=== PATIENT | female | born 1940 | race Caucasian/White ===

== ENCOUNTER 2020-05-14 17:58 | Emergency (ER) | payer MEDICARE, SELFPAY ==
[2020-05-14 18:00] VITALS: BP 165/52; PULSE 92; RESP 16; TEMP 36.3; O2SAT 96; BMI 18.4
--- NOTE | 2020-05-14 18:24 | US_ITS ---
STUDY: VENOUS DOPPLER ULTRASOUND - BILATERAL LOWER EXTREMITIES REASON FOR EXAM: Female, 79 years old. BILAT LEG PAIN ELEV D DIMER TECHNIQUE: Ultrasound evaluation of the deep vein system to include thayer-scale imaging and compression was performed. Thayer-scale imaging and Doppler sonographic evaluation, including duplex spectral analysis and qualitative color flow sonography, was performed. COMPARISON: None. FINDINGS: RIGHT LEG Common Femoral Vein: Normal compression, spontaneity and augmentation. Normal color Doppler. Common Femoral Vein/Greater Saphenous Junction: Normal compression, spontaneity and augmentation. Normal color Doppler. Deep Femoral Vein: Normal compression, spontaneity and augmentation. Normal color Doppler. Femoral Proximal: Normal compression, spontaneity and augmentation. Normal color Doppler. Femoral Middle: Normal compression, spontaneity and augmentation. Normal color Doppler. Femoral Distal: Normal compression, spontaneity and augmentation. Normal color Doppler. Popliteal Vein: Normal compression, spontaneity and augmentation. Normal color Doppler. Posterior Tibial Vein: Normal compression, spontaneity and augmentation. Normal color Doppler. Peroneal Vein: Normal compression, spontaneity and augmentation. Normal color Doppler. LEFT LEG Common Femoral Vein: Normal compression, spontaneity and augmentation. Normal color Doppler. Common Femoral Vein/Greater Saphenous Junction: Normal compression, spontaneity and augmentation. Normal color Doppler. Deep Femoral Vein: Normal compression, spontaneity and augmentation. Normal color Doppler. Femoral Proximal: Normal compression, spontaneity and augmentation. Normal color Doppler. Femoral Middle: Normal compression, spontaneity and augmentation. Normal color Doppler. Femoral Distal: Normal compression, spontaneity and augmentation. Normal color Doppler. Popliteal Vein: Normal compression, spontaneity and augmentation. Normal color Doppler. Posterior Tibial Vein: Normal compression, spontaneity and augmentation. Normal color Doppler. Peroneal Vein: Normal compression, spontaneity and augmentation. Normal color Doppler. US/Venous Duplex Imag/Vinay Extrem IMPRESSION: Normal venous Doppler ultrasound of the bilateral lower extremities. Electronically Signed: Shaun Hernandez MD at 19:48 EDT , Service support ,
--- NOTE | 2020-05-14 18:26 | ED.VISSUMM ---
- ER Visit Summary Date of Service: 05/14/20 Chief Complaint: Bilateral thigh pain with generalized weakness and weight loss History of Present Illness: The patient is a 79 F history of asthma, renal insufficiency and high cholesterol. Reportedly this is been going on for the last 2 to 3 weeks according to the patient and her . She was seen in urgent care at the [facility] started on amoxicillin for possible infected tooth. She had outpatient labs done that reportedly revealed elevated d-dimer so she was sent to the ER to rule out DVT. She denies chest pain or shortness of breath. She denies hemoptysis. She denies fever or chills. She denies dysuria. She has no known history of cancer. Patient's had no recent hospitalization, surgery, travel or immobilization. Physical Examination: Well-appearing elderly female no acute distress vital signs stable afebrile. Pulse ox 96% on room air no signs hypoxia. H EENT exam unremarkable. Neck nontender no lymphadenopathy. Lungs clear to auscultation bilaterally. Heart regular rhythm no murmur. Abdomen soft nontender normal bowel sounds no peritoneal signs. Remedies moves all 4. Neurovascular intact. 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 Her lower extremities and feet have no swelling. No calf tenderness. No edema. Dorsi plantarflexion intact. DP pulses intact. She has normal range of motion of both hips, knees and ankles. Thighs are nonswollen. They are not specifically tender. No signs of trauma. Neurologically she is awake alert with no focal motor deficits. Test Results: White count 13.9 a recent CBC done at the [facility] was 18.3. Hemoglobin 11.5. Chemistries unremarkable. Normal gap. BUN of 10 creatinine of 1.1. Glucose of 107. Noninvasive studies of both lower extremities showed no clots. Read by the radiologist. I went over all test results with the patient and her . Emergency Department Course and Treatment: Patient was sent in for rule out DVT. Clinically she does not have a DVT by exam. There is no edema or cords. No swelling. Lower extremity ultrasound to be obtained. Due to her other history of weight loss generalized weakness I am obtaining screening labs. She reportedly had a negative chest x-ray recently. Repeat exam patient is doing well at 2300. Leg exam is unremarkable. There is no redness, swelling or bruising to her thighs. She has normal range of motion of both lower extremities. Normal strength and sensation. Treatment Plan: Follow-up with primary care physician. Return if feeling worse. Disposition: Discharge Impression: Bilateral lower extremity pain secondary to muscular etiology Generalized weakness This note was generated with [employer] dictation software. It may contain incorrect words, spelling, and punctuation that were not noted in review of the chart prior to signing ED Disposition - Plan for ED Patient: Referrals: Kymberly Bennett MD [Primary Care Provider] -
[2020-05-14 19:20] LABS: Absolute Lymphocyte Count 1.22 X10^3/uL (0.83-4.51); Absolute Neutrophil Count 11.2 X10^3/uL (2.0-7.7); Basophil# 0.08 X10^3/uL; Basophil% 0.6 % (0-1); Eosinophil# 0.09 X10^3/uL; Eosinophils% 0.6 % (0-5); Hematocrit 36.5 % (37-47); Hemoglobin 11.5 g/dL (12.0-15.0); Lymphocyte # 1.22 X10^3/ul (4.0); Lymphocyte % 8.8 % (19-41); Mean Corp Hgb Conc 31.5 g/dL (32-36); Mean Corpuscular Hgb 27.5 pg (27.0-32.0); Mean Corpuscular Volume 87.3 fL (81-99); Mean Platelet Vol. 10.7 fl (6.2-12.0); Monocyte# 1.02 X10^3/uL; Monocyte% 7.4 % (0-10); NRBC Flagged by Analyzer 0 % (0-5); Neutrophil # 11.15 X10^3/uL (2.7-7.7); Neutrophil % 80.4 % (47-70); Platelet Count 618 K/mm3 (150-450); RBC Distribution Width CV 13.2 % (11.6-14.6); Red Blood Count 4.18 M/mm3 (4.2-5.4); White Blood Count 13.9 K/mm3 (4.4-11.0)
[2020-05-14 19:21] LABS: Anion Gap 5 (5-15); BUN 10 mg/dL (7-18); BUN/Creat Ratio 8.9 RATIO (10-20); Calcium,Total 8.5 mg/dL (8.5-10.1); Chloride 98 mmol/L (98-107); Creatinine, Serum 1.12 mg/dL (0.55-1.02); EST Glomerular Filtration Rate 50 mL/min (>60); Est Glom Filt Rate - Afr Amer 60 mL/min (>60); Estimated Creatinine Clearance 33.29 ml/min; Glucose 107 mg/dL (74-106); Sodium Level 134 mmol/L (136-145)
[2020-05-14 21:06] VITALS: RESP 16
--- NOTE | 2020-05-14 23:03 | ED.DEP ---
ED Disposition - Plan for ED Patient: Disposition: Home or Assisted Living Referrals: Kymberly Bennett MD [Primary Care Provider] - 3-5 Days if not improving Rocael Cabezas MD [STAFF PHYSICIAN] - 3-5 Days if not improving Additional Instructions: Follow-up with your primary care physician Dr. Bennett or look for a new primary care physician with [facility] which includes Dr. Rocael Cabezas, Dr. Reece Solorio or Dr. Dio Chen. Plenty of fluids and rest. The leg pain should progressively improve if not you will need further testing. If you continue to lose weight you will also need further testing. The ultrasound of your legs tonight showed no signs of any blood clots or other abnormality.
[2020-05-14 23:26] VITALS: RESP 16
== END 2020-05-14 23:27 | disposition home or self-care (01) ==
PROVIDERS: Emergency Provider Emergency Medicine; PCP Internal Medicine
DX: M79.651 Pain in right thigh (principal); M79.652 Pain in left thigh; R53.1 Weakness; E78.00 Pure hypercholesterolemia, unspecified
CPT/HCPCS: 80048; 85025; 93970; 99283

== ENCOUNTER 2023-08-08 11:55 | Inpatient (IN) | payer MEDICARE, SELFPAY ==
[2023-08-08] VITALS (9 sets, daily range): BP systolic 120–154; BP diastolic 53–78; PULSE 73–95; RESP 16–29; TEMP 36.7–37.6; O2SAT 2–98; BMI 18.2; BMI 18.7
--- NOTE | 2023-08-08 12:26 | RAD_ITS ---
INDICATION: cough EXAMINATION/TECHNIQUE: X-RAY - XR Chest 2 Views COMPARISON: No relevant prior comparison study available FINDINGS: LINES/DEVICES: None. LUNGS: No consolidation, edema or effusion. No pneumothorax. MEDIASTINUM AND CARDIOVASCULAR STRUCTURES: Cardiac silhouette not enlarged. Central airways and mediastinal contour are unremarkable. BONES AND SOFT TISSUES: Unremarkable. RAD/Chest PA and Lateral IMPRESSION: No radiographic evidence of acute cardiopulmonary disease. Electronically Signed: Rina Rodríguez MD at 13:25 EST ,
--- NOTE | 2023-08-08 12:28 | EX.ED.DYSGE1 ---
HPI History of Present Illness Chief Complaint: Shortness of Breath Narrative Narrative: 83-year-old female with PMH of hyperlipidemia, hypothyroidism, asthma presents with 4 to 5 days of general illness, fatigue, runny nose and productive cough. Her 's been ill with similar symptoms. She went to urgent care to get tested today for the flu and her oxygen was 88% on room air so they sent her to the ED. She does not wear home oxygen. She states she does have chest pain with coughing and feels short of breath. She has not really been getting out of bed. She is eating and drinking a small amount. Denies GI symptoms. She has been using her rescue albuterol inhaler more than usual which helps. She is also on a steroid inhaler. PFSH PFSH Home Medications cholecalciferol (vitamin D3) 125 mcg (5,000 unit) capsule 5,000 unit PO DAILY 03/07/17 [History Last Taken 05/13/20] levothyroxine 75 mcg tablet 75 mcg PO DAILY 03/07/17 [History Last Taken 05/14/20] lovastatin 10 mg tablet 10 mg PO DAILY 03/07/17 [History Last Taken 05/14/20] beclomethasone dipropionate 80 mcg/actuation HFA breath activated aerosol 1 puff inhalation DAILY 05/14/20 [History Last Taken 05/14/20] Allergy/AdvReac Type Severity Reaction Status Date / Time No Known Allergies Allergy Verified 08/08/23 11:56 Social History Smoking Status: Never smoker ROS ROS ED ROS Narrative Constitutional: Positive for malaise. Negative for fever, chills CVS: Positive for chest pain. Negative for syncope. Respiratory: Positive for shortness of breath, cough. GI: Negative for abdominal pain, nausea, vomiting. Neuro: Negative for headache. EXAM Physical Exam Narrative Exam Narrative: CONST: Patient sitting in no acute distress. EYES: Normal inspection. NECK: Normal inspection. RESP: No respiratory distress, lung sounds diminished. CVS: Regular rate and rhythm, no murmur, no gallop. ABD: Soft and nontender, no guarding or rebound, nondistended. SKIN: Color normal, no rash, warm, dry, intact. EXTREMITIES: Normal appearance, no pedal edema. NEURO: Oriented x4. PSYCH: Normal affect. Const Vital Signs: 08/08/23 11:56 08/08/23 12:01 08/08/23 12:51 Temperature 98.0 F Temperature Source Temporal Pulse Rate 90 95 Respiratory Rate 22 H 29 H Respiratory Effort Respiratory Depth Respiratory Pattern Blood Pressure 150/78 H 154/72 H Blood Pressure Mean 102 99 Pulse Ox 88 97 Oxygen Delivery Method Room Air Nasal Cannula Nasal Cannula Oxygen Flow Rate (L/min) 2 2 08/08/23 12:51 08/08/23 12:55 08/08/23 12:47 Temperature Temperature Source Pulse Rate 88 Respiratory Rate 29 H 20 H Respiratory Effort Short of Breath Respiratory Depth Normal Respiratory Pattern Normal Normal Blood Pressure Blood Pressure Mean Pulse Ox 96 Oxygen Delivery Method Nasal Cannula Room Air Oxygen Flow Rate (L/min) 2 08/08/23 12:47 08/08/23 13:39 Temperature Temperature Source Pulse Rate Respiratory Rate Respiratory Effort Respiratory Depth Respiratory Pattern Blood Pressure Blood Pressure Mean Pulse Ox 96 Oxygen Delivery Method Nasal Cannula Nasal Cannula Oxygen Flow Rate (L/min) 2 2 MDM MDM MDM Narrative Medical decision making narrative: History gathered from: Patient and spouse Patient has malaise cough and shortness of breath. She appears ill but nontoxic. She was 88% on room air and placed on 2 L O2. She is able to speak in no respiratory distress. Lung sounds are diminished. I do not hear wheezing but since she had improvement with her albuterol inhaler I ordered a DuoNeb treatment. Swab is positive for influenza A. There is new leukopenia at 2.3, stable hemoglobin 11.8, platelets 109. Electrolytes are within normal, BUN 18, creatinine 1.38 slightly elevated. Previous labs are from 3 years ago. EKG is sinus rhythm with no acute ischemic changes and troponin is 10. CXR shows no acute process. Patient is still requiring 2 L nasal cannula so case was discussed with the hospitalist for admission. Lab Data Attestation: I reviewed the patient's lab results. Labs: Laboratory Results - last 24 hr 08/08/23 12:45 WBC 2.3 L RBC 4.04 L Hgb 11.8 L Hct 36.6 L MCV 90.6 MCH 29.2 MCHC 32.2 RDW Std Deviation 46.5 H RDW Coeff of Segundo 14.0 Plt Count 109 L MPV 12.5 H Immature Gran % (Auto) 0.400 Neut % (Auto) 76.7 H Lymph % (Auto) 8.8 L [place] % (Auto) 13.7 H Eos % (Auto) 0.0 Baso % (Auto) 0.4 Absolute Neuts (auto) 1.7 L Absolute Lymphs (auto) 0.20 L Nucleated RBC % 0 Diff Path Review May foll Sodium 137 Potassium 4.0 Chloride 100 Carbon Dioxide 32.0 Anion Gap 5 BUN 18 Creatinine 1.38 H Estim Creat Clear Calc 25.63 Est GFR (MDRD) Af Amer 47 L Est GFR (MDRD) Non-Af 39 L BUN/Creatinine Ratio 13.0 Glucose 111 H Calcium 8.5 Troponin I High Sens 10 Radiography Diagnostic Testing: Clinical Impression(s) from Imaging Studies Chest X-Ray 08/08/23 12:26 IMPRESSION: No radiographic evidence of acute cardiopulmonary disease. Electronically Signed: Rina Rodríguez MD at 13:25 EST , ED attending interpretation of 2-view chest x-ray shows normal heart size, no acute infiltrate, edema, or effusion. Discharge Plan Triage Chief Complaint: Shortness of Breath ED Midlevel Provider: Lorene Tong ED Provider: Joyce Parr Dx/Rx/DC Orders Clinical Impression: Influenza A, History of asthma, Hypoxia, Leukopenia, Thrombocytopenia Prescriptions: No Action lovastatin 10 MG tablet 10 mg PO DAILY levothyroxine 75 MCG tablet 75 mcg PO DAILY cholecalciferol (vitamin D3) 5,000 UNIT capsule 5,000 unit PO DAILY beclomethasone dipropionate 80 mcg/actuation HFA aerosol breath activated 1 puff inhalation DAILY Patient Comments: INHALE 1 PUFF BY MOUTH TWICE DAILY START 07 21 2019 END 10 19 2019 Primary Care Provider: Kymberly Bennett Referrals: Kymberly Bennett MD [Primary Care Provider] -
[2023-08-08] MEDS: 0.9% Normal Saline (1000mL) 1,000 ML 1000 ML IV (12:41)
[2023-08-08] MEDS: Ipratropium/Albuterol Sulfate 3 ML AMPUL.NEB INHALATION (12:42)
[2023-08-08 12:54] LABS: Absolute Neutrophil Count 1.7 X10^3/uL (2.0-7.7); Basophil# 0.01 X10^3/uL; Basophil% 0.4 % (0-1); Hematocrit 36.6 % (37-47); Hemoglobin 11.8 g/dL (12.0-15.0); Lymphocyte % 8.8 % (19-41); Mean Corp Hgb Conc 32.2 g/dL (32-36); Mean Corpuscular Hgb 29.2 pg (27.0-32.0); Mean Corpuscular Volume 90.6 fL (81-99); Mean Platelet Vol. 12.5 fl (6.2-12.0); Monocyte# 0.31 X10^3/uL; Monocyte% 13.7 % (0-10); NRBC Flagged by Analyzer 0 % (0-5); Neutrophil # 1.74 X10^3/uL (2.7-7.7); Neutrophil % 76.7 % (47-70); POSITIVE DIFFERENTIAL YES; Platelet Count 109 K/mm3 (150-450); RBC Distribution Width SD 46.5 fl (35.1-43.9); Red Blood Count 4.04 M/mm3 (4.2-5.4); White Blood Count 2.3 K/mm3 (4.4-11.0)
[2023-08-08 13:02] LABS: Differential Indicated SCAN CRITERIA MET
[2023-08-08 13:11] LABS: Anion Gap 5 (5-15); BUN 18 mg/dL (7-18); Calcium,Total 8.5 mg/dL (8.5-10.1); Chloride 100 mmol/L (98-107); Creatinine, Serum 1.38 mg/dL (0.55-1.02); EST Glomerular Filtration Rate 39 mL/min (>60); Est Glom Filt Rate - Afr Amer 47 mL/min (>60); Estimated Creatinine Clearance 25.63 ml/min; Glucose 111 mg/dL (74-106); Sodium Level 137 mmol/L (136-145); Troponin-I HS 10 pg/mL (3.0-54.0)
--- NOTE | 2023-08-08 13:40 | HP.PCM.HOS_ITS ---
HPI - General General Date of Admission: 08/08/23 Date of Service: 08/08/23 Chief Complaint: Dyspnea, cough, diarrhea, fatigue, malaise. HPI Narrative The patient is an 83 y/o F w/ PMHx: Hypothyroidism, HLD, Asthma who presents to the [facility] ED on 08/08/23 with history of 4-5 days of Workup in the ED included T98, heart rate 90, BP 150/78, respiratory rate 22, 88% on room air at rest with improvement to 96% on 2 L nasal cannula with respi ratory rate mildly increased up to 29, CBC with WBC 2.3, hemoglobin 1.8, MCV 90.6, platelet 109 with ANC 1.7 and lymphopenia, BMP with BUN/creatinine 18/1.38, glucose 111, troponin 10, chest x-ray with no acute cardiopulmonary findings, rapid SARS and influenza antigen with positive influenza A antigen. #1. General Malaise, Cough, Diarrhea, Dyspnea, General Debility secondary to Influenza A Viral Syndrome: CXR in the ED w/ no acute cardiopulmonary findings. Admission CBC w/ noted pancytopenia possibly reactive as well as influenza A positive rapid antigen. Will admit to [facility], maintain on oxygen with wean as tolerated, administer judicious IVFs, continue ATC budesonide therapy as noted, PRN albuterol, HOB, IS parameters, given significant timeline of potentially 5 days will defer Tamiflu administration at this time, PT/OT/case management for discharge planning. #2. Pancytopenia, acute: Potentially reactive with acute illness as noted, admission CBC with WBC 2.3, hemoglobin 11.8, platelet 109 with ANC 1.7 and lymphopenia however previous baseline hemoglobin had demonstrated normocytic chronic anemia however the leukopenia and thrombocytopenia are new, continue to trend CBC. #3. Chronic asthma complicated by current presentation as noted #1: Will maintain on oxygen with wean as tolerated to room air, will temporally hold home inhaler in the interim transition to ATC budesonide therapy, PRN albuterol, HOB, IS parameters. #4. Chronic Kidney Disease Stage III, unclear subtype: Admission BUN/Cr 18/1.38, baseline renal function noted previously 1.1 however this was in 2019, repeat BMP in AM. #5. Chronic normocytic anemia: Admission hemoglobin 11.8, MCV 90.6, baseline noted previously 11.5 however again this was in 2019, appears currently stable however from previous, will continue to trend CBC. #6. Hypothyroidism: We will continue patient on levothyroxine regimen. #7. Hyperlipidemia: We will continue patient home statin therapy. #8. DVT prophylaxis: Heparin cautiously given reactive thrombcytopenia as noted. #9. CODE status: Patient HCPOA is [] and living will is []. Discussed CODE status at length including difference between FULL code, DNR-CCA and DNR-CC status. Following discussions about the differences in these status, requested []. Advanced Care Planning Face to Face Time: [] minutes. [facility] Home Medications cholecalciferol (vitamin D3) 125 mcg (5,000 unit) capsule 5,000 unit PO DAILY 03/07/17 [History Last Taken 05/13/20] levothyroxine 75 mcg tablet 75 mcg PO DAILY 03/07/17 [History Last Taken 05/14/20] lovastatin 10 mg tablet 10 mg PO DAILY 03/07/17 [History Last Taken 05/14/20] beclomethasone dipropionate 80 mcg/actuation HFA breath activated aerosol 1 puff inhalation DAILY 05/14/20 [History Last Taken 05/14/20] Allergy/AdvReac Type Severity Reaction Status Date / Time No Known Allergies Allergy Verified 08/08/23 11:56 Social History Smoking Status: Never smoker Vital Signs Vital Signs Vital Signs: 08/08/23 11:56 08/08/23 12:01 08/08/23 12:51 Temperature 98.0 F Temperature Source Temporal Pulse Rate 90 95 Respiratory Rate 22 H 29 H Respiratory Effort Respiratory Depth Respiratory Pattern Blood Pressure 150/78 H 154/72 H Blood Pressure Mean 102 99 Pulse Ox 88 97 Oxygen Delivery Method Room Air Nasal Cannula Nasal Cannula Oxygen Flow Rate (L/min) 2 2 08/08/23 12:51 08/08/23 12:55 08/08/23 12:47 Temperature Temperature Source Pulse Rate 88 Respiratory Rate 29 H 20 H Respiratory Effort Short of Breath Respiratory Depth Normal Respiratory Pattern Normal Normal Blood Pressure Blood Pressure Mean Pulse Ox 96 Oxygen Delivery Method Nasal Cannula Room Air Oxygen Flow Rate (L/min) 2 08/08/23 12:47 08/08/23 13:39 Temperature Temperature Source Pulse Rate Respiratory Rate Respiratory Effort Respiratory Depth Respiratory Pattern Blood Pressure Blood Pressure Mean Pulse Ox 96 Oxygen Delivery Method Nasal Cannula Nasal Cannula Oxygen Flow Rate (L/min) 2 2 Weight Weight: 120 lb 1.6 oz Body Mass Index (BMI) 18.2 Results Lab / Micro Data 08/08/23 12:45 08/08/23 12:45 Labs: Laboratory Results - last 24 hr 08/08/23 12:45: WBC 2.3 L, RBC 4.04 L, Hgb 11.8 L, Hct 36.6 L, MCV 90.6, MCH 29.2, MCHC 32.2, RDW Std Deviation 46.5 H, RDW Coeff of Segundo 14.0, Plt Count 109 L, MPV 12.5 H, Immature Gran % (Auto) 0.400, Neut % (Auto) 76.7 H, Lymph % (Auto) 8.8 L, [place] % (Auto) 13.7 H, Eos % (Auto) 0.0, Baso % (Auto) 0.4, Absolute Neuts (auto) 1.7 L, Absolute Lymphs (auto) 0.20 L, Nucleated RBC % 0, Diff Path Review December, Sodium 137, Potassium 4.0, Chloride 100, Carbon Dioxide 32.0, Anion Gap 5, BUN 18, Creatinine 1.38 H, Estim Creat Clear Calc 25.63, Est GFR (MDRD) Af Amer 47 L, Est GFR (MDRD) Non-Af 39 L, BUN/Creatinine Ratio 13.0, Glucose 111 H, Calcium 8.5, Troponin I High Sens 10 Micro: Microbiology 08/08/23 12:45 Nasal Secretion SARS-CoV-2 & FLU Antigen (Rapid) - Final Influenzae A Imagaing Radiology Impression Chest X-Ray 08/08/23 12:26 IMPRESSION: No radiographic evidence of acute cardiopulmonary disease. Electronically Signed: Rina Rodríguez MD at 13:25 EST ,
--- NOTE | 2023-08-08 13:40 | PCM.HP.STD ---
HPI - General General Date of Admission: 08/08/23 Date of Service: 08/08/23 Chief Complaint: Dyspnea, cough, diarrhea, fatigue, malaise. HPI Narrative The patient is an 83 y/o F w/ PMHx: Hypothyroidism, HLD, Asthma who presents to the [facility] ED on 08/08/23 with history of 4-5 days of fatigue, malaise, loose stool x 1, nonproductive cough, dyspnea, low-grade temperatures mildly worsening with her recently also ill with similar symptoms diagnosed the day prior at the [place] with influenza A prompting eventual ED evaluation. She did note that approximately 2 weeks prior to the onset of this illness she did have upper respiratory type symptoms and was diagnosed with pneumonia and treated with an antibiotic with improvement following but began to become sick again just after her had also been ill. She denies any specific wheezing during this timeline. She does note that her chest feels sore but this is primarily from coughing she notes. Workup in the ED included T98, heart rate 90, BP 150/78, respiratory rate 22, 88% on room air at rest with improvement to 96% on 2 L nasal cannula with respiratory rate mildly increased up to 29, CBC with WBC 2.3, hemoglobin 1.8, MCV 90.6, platelet 109 with ANC 1.7 and lymphopenia, BMP with BUN/creatinine 18/1.38, glucose 111, troponin 10, chest x-ray with no acute cardiopulmonary findings, rapid SARS and influenza antigen with positive influenza A antigen. In the ED patient administered DuoNeb therapy and normal saline bolus. [facility] Medical History (Updated 08/08/23 @ 14:[address] Ayleen Daniels MD) Anemia Asthma HLD (hyperlipidemia) Hypothyroidism Home Medications cholecalciferol (vitamin D3) 125 mcg (5,000 unit) capsule 5,000 unit PO QHS supplement 03/07/17 [History Last Taken 05/13/20] levothyroxine 75 mcg tablet 75 mcg PO DAILY thyroid 03/07/17 [History Last Taken 05/14/20] lovastatin 10 mg tablet 10 mg PO QHS cholestrol 03/07/17 [History Last Taken 05/14/20] beclomethasone dipropionate 80 mcg/actuation HFA breath activated aerosol 2 inh inhalation QHS breathing 05/14/20 [History Last Taken 10/02/20] lisinopril 10 mg tablet 10 mg PO QHS PRN blood pressure 08/08/23 [History Last Taken Unknown] Allergy/AdvReac Type Severity Reaction Status Date / Time No Known Allergies Allergy Verified 08/08/23 11:56 Family History (Updated 08/08/23 @ 14:[address] Ayleen Daniels MD) Father No problems noted. Mother Heart disease CAD (coronary artery disease) Myocardial infarction Surgical History (Updated 08/08/23 @ 14:[address] Ayleen Daniels MD) H/O bilateral oophorectomy H/O cataract removal with insertion of prosthetic lens S/P appendectomy S/P cholecystectomy Social History (Updated 08/08/23 @ 14:[address] Ayleen Daniels MD) household members: spouse Smoking Status: Never smoker alcohol intake: never substance use type: does not use ROS ROS Narrative Admission Review of Systems: CONSTITUTIONAL: No weight loss, + fever, chills, weakness or fatigue. HEENT: + Congestion, rhinorrhea, sneezing. Eyes: No visual loss, blurred vision, double vision or yellow sclerae. Ears, Nose, Throat: No hearing loss. SKIN: No rash or itching, lesions, wounds. CARDIOVASCULAR: + Reproducible oral chest discomfort primarily with coughing. No palpitations, edema, orthopnea, syncopal events. RESPIRATORY: + Shortness of breath, cough without marked sputum. No wheezing, hemoptysis. GASTROINTESTINAL: + Anorexia, loose stool x 1. No nausea, vomiting or diarrhea, abdominal pain, melena, BRBPR. GENITOURINARY: No dysuria, frequency, urgency or retention. NEUROLOGICAL: No headache, dizziness, syncope, paralysis, ataxia, numbness or tingling in the extremities, focal weakness, change in bowel or bladder control, seizure. MUSCULOSKELETAL: + muscle, back pain, joint pain or stiffness. HEMATOLOGIC: + anemia, easy bleeding/bruising. LYMPHATICS: No enlarged nodes. No history of splenectomy. PSYCHIATRIC: No history of depression or anxiety. ENDOCRINOLOGIC: No reports of sweating, cold or heat intolerance. No polyuria or polydipsia. ALLERGIES: No history of asthma, hives, eczema or rhinitis. Vital Signs Vital Signs Vital Signs: 08/08/23 11:56 08/08/23 12:01 08/08/23 12:51 Temperature 98.0 F Temperature Source Temporal Pulse Rate 90 95 Respiratory Rate 22 H 29 H Respiratory Effort Respiratory Depth Respiratory Pattern Blood Pressure 150/78 H 154/72 H Blood Pressure Mean 102 99 Pulse Ox 88 97 Oxygen Delivery Method Room Air Nasal Cannula Nasal Cannula Oxygen Flow Rate (L/min) 2 2 08/08/23 12:51 08/08/23 12:55 08/08/23 12:47 Temperature Temperature Source Pulse Rate 88 Respiratory Rate 29 H 20 H Respiratory Effort Short of Breath Respiratory Depth Normal Respiratory Pattern Normal Normal Blood Pressure Blood Pressure Mean Pulse Ox 96 Oxygen Delivery Method Nasal Cannula Room Air Oxygen Flow Rate (L/min) 2 08/08/23 12:47 08/08/23 13:39 Temperature Temperature Source Pulse Rate Respiratory Rate Respiratory Effort Respiratory Depth Respiratory Pattern Blood Pressure Blood Pressure Mean Pulse Ox 96 Oxygen Delivery Method Nasal Cannula Nasal Cannula Oxygen Flow Rate (L/min) 2 2 Weight Weight: 120 lb 1.6 oz Body Mass Index (BMI) 18.2 Physical Exam Narrative Physical Examination: General: Awake, alert, oriented x 3 and cooperative, seated upright in the ED bed in no apparent distress, fatigued and ill-appearing. Skin: Normal color, normal turgor, no icterus, no cyanosis except for occasional staged ecchymoses. HEENT: AT/NC, EOMI, PERRLA, MMM, no carotid bruits or JVD noted. Lungs: Diffusely diminished, greater bases, appropriate effort, no respiratory distress evident at all, currently no appreciated rales, ronchi or wheezing. Heart: Mildly tachycardic with regular rhythm; no gallop, rub audible. Abdomen: Soft, NTTP, ND, mildly hyperactive BS, no HSM. Extremities: No cyanosis, clubbing, or edema. Neurological: Patient awake, alert, oriented as noted, cognitive function intact; pupils equally reactive to light and accommodation, cranial nerves II-XII grossly normal, moving all 4 extremities, no focal deficits, strength moderately to severely globally decreased secondary to acute presentation. Psychiatric: Affect appears fatigued, ill-appearing, no acute evidence of depressive or anxiety feelings. Results Lab / Micro Data 08/08/23 12:45 08/08/23 12:45 Labs: Laboratory Results - last 24 hr 08/08/23 12:45: WBC 2.3 L, RBC 4.04 L, Hgb 11.8 L, Hct 36.6 L, MCV 90.6, MCH 29.2, MCHC 32.2, RDW Std Deviation 46.5 H, RDW Coeff of Segundo 14.0, Plt Count 109 L, MPV 12.5 H, Immature Gran % (Auto) 0.400, Neut % (Auto) 76.7 H, Lymph % (Auto) 8.8 L, [place] % (Auto) 13.7 H, Eos % (Auto) 0.0, Baso % (Auto) 0.4, Absolute Neuts (auto) 1.7 L, Absolute Lymphs (auto) 0.20 L, Nucleated RBC % 0, Diff Path Review December foll, Sodium 137, Potassium 4.0, Chloride 100, Carbon Dioxide 32.0, Anion Gap 5, BUN 18, Creatinine 1.38 H, Estim Creat Clear Calc 25.63, Est GFR (MDRD) Af Amer 47 L, Est GFR (MDRD) Non-Af 39 L, BUN/Creatinine Ratio 13.0, Glucose 111 H, Calcium 8.5, Troponin I High Sens 10 Micro: Microbiology 08/08/23 12:45 Nasal Secretion SARS-CoV-2 & FLU Antigen (Rapid) - Final Influenzae A Imagaing Radiology Impression Chest X-Ray 08/08/23 12:26 IMPRESSION: No radiographic evidence of acute cardiopulmonary disease. Electronically Signed: Rina Rodríguez MD at 13:25 EST , Assessment & Plan Assessment/Plan (1) Influenza A: (2) Hypoxia: PLAN: Plan The patient is an 83 y/o F w/ PMHx: Hypothyroidism, HLD, Asthma who presents to the [facility] ED on 08/08/23 with history of 4-5 days of fatigue, malaise, loose stool x 1, nonproductive cough, dyspnea, low-grade temperatures mildly worsening with her recently also ill with similar symptoms [facility] with [facility] A prompting eventual ED evaluation. #1. Acute Hypoxia secondary to Acute Influenza A Viral Syndrome with General Malaise, Cough, Diarrhea, Dyspnea, General Debility secondary to: CXR in the ED w/ no acute cardiopulmonary findings. Admission CBC w/ noted pancytopenia possibly reactive as well as influenza A positive rapid antigen. Will admit to [facility], maintain on oxygen with wean as tolerated, administer judicious IVFs, continue ATC budesonide therapy as noted, PRN albuterol, HOB, IS parameters, given significant timeline of potentially 5 days will defer Tamiflu administration at this time, PT/OT/case management for discharge planning. Will continue to monitor and if the onset of significant wheezing low threshold to initiate steroid therapy given underlying asthma. #2. Pancytopenia, acute: Potentially reactive with acute illness as noted, admission CBC with WBC 2.3, hemoglobin 11.8, platelet 109 with ANC 1.7 and lymphopenia however previous baseline hemoglobin had demonstrated normocytic chronic anemia however the leukopenia and thrombocytopenia are new, continue to trend CBC. #3. Chronic asthma complicated by current presentation as noted #1: Will maintain on oxygen with wean as tolerated to room air, will temporally hold home inhaler in the interim transition to ATC budesonide therapy, PRN albuterol, HOB, IS parameters. #4. Chronic Kidney Disease Stage III, unclear subtype: Admission BUN/Cr 18/1.38, baseline renal function noted previously 1.1 however this was in 2020, repeat BMP in AM. #5. Chronic normocytic anemia: Admission hemoglobin 11.8, MCV 90.6, baseline noted previously 11.5 however again this was in 2020, appears currently stable however from previous, will continue to trend CBC. #6. Hypothyroidism: We will continue patient on levothyroxine regimen. #7. Hyperlipidemia: We will continue patient home statin therapy. #8. DVT prophylaxis: Heparin cautiously given reactive thrombcytopenia as noted. #9. CODE status: Patient does not have healthcare power of dry pan feeder or living will set up but notes her would be her decision-maker. Discussed CODE status at length including difference between FULL code, DNR-CCA and DNR-CC status. Following discussions about the differences in these status, requested currently full code but notes that if things seemed immediately unsuccessful she would request to transition to comfort only. Advanced Care Planning Face to Face Time: 16 minutes. Charges/Coding Visit Charges Inpatient E&M: 43322 Init Hosp L3 Procedures Hospitalists Procedures: 27726 Advncd Care Plan 30 Min
[2023-08-08] MEDS: 0.9% Normal Saline (1000mL) 1,000 ML 100 ML IV (15:19)
[2023-08-08 15:40] LABS: Procalcitonin 0.06 ng/mL (0.00-0.09)
[2023-08-08] MEDS: Budesonide Respules 0.5 MG/2 ML AMPUL.NEB. INHALATION (19:57)
[2023-08-08] MEDS: Menthol/Lanolin/Calamine/Znox 113 GM Tube 1 APPLIC TOPICAL (21:45)
[2023-08-08] MEDS: Heparin Injection (Vial) 5,000 UNIT/ML VIAL 5000 UNIT SC (21:46)
[2023-08-08] MEDS: Atorvastatin Calcium 10 MG Tablet 5 MG PO (21:49)
[2023-08-08] MEDS: guaiFENesin 10 ML UDC (200MG/10ML) 20 ML PO (21:50)
[2023-08-09] VITALS (11 sets, daily range): BP systolic 118–139; BP diastolic 59–77; PULSE 72–90; RESP 16–20; TEMP 36.8–37.5; O2SAT 91–98; BMI 18.7
[2023-08-09] MEDS: Levothyroxine 75 MCG Tablet PO (04:23)
[2023-08-09 06:32] LABS: Absolute Lymphocyte Count 0.52 X10^3/uL (0.83-4.51); Absolute Neutrophil Count 1.3 X10^3/uL (2.0-7.7); Basophil# 0.02 X10^3/uL; Eosinophil# 0.01 X10^3/uL; Eosinophils% 0.5 % (0-5); Hematocrit 31.4 % (37-47); Hemoglobin 9.9 g/dL (12.0-15.0); Lymphocyte # 0.52 X10^3/ul (0.83-4.51); Lymphocyte % 24.9 % (19-41); Mean Corp Hgb Conc 31.5 g/dL (32-36); Mean Corpuscular Hgb 28.8 pg (27.0-32.0); Mean Corpuscular Volume 91.3 fL (81-99); Mean Platelet Vol. 12.4 fl (6.2-12.0); Monocyte# 0.28 X10^3/uL; Monocyte% 13.4 % (0-10); NRBC Flagged by Analyzer 0 % (0-5); Neutrophil # 1.26 X10^3/uL (2.7-7.7); Neutrophil % 60.2 % (47-70); POSITIVE COUNT YES; POSITIVE DIFFERENTIAL YES; Platelet Count 76 K/mm3 (150-450); RBC Distribution Width CV 14.1 % (11.6-14.6); RBC Distribution Width SD 47.3 fl (35.1-43.9); Red Blood Count 3.44 M/mm3 (4.2-5.4); White Blood Count 2.1 K/mm3 (4.4-11.0)
[2023-08-09 07:00] LABS: ALB/GLOB Ratio 0.9 RATIO (0.9-2.4); AST(SGOT) 23 U/L (15-37); Alanine Aminotransfer ALT/SGPT 17 U/L (13-56); Albumin, Serum 2.6 g/dL (3.2-5.0); Alkaline Phosphatase 41 U/L (45-117); Anion Gap 5 (5-15); BUN 15 mg/dL (7-18); BUN/Creat Ratio 13.4 RATIO (10-20); Calcium,Total 7.8 mg/dL (8.5-10.1); Chloride 104 mmol/L (98-107); Creatinine, Serum 1.12 mg/dL (0.55-1.02); EST Glomerular Filtration Rate 49 mL/min (>60); Est Glom Filt Rate - Afr Amer 59 mL/min (>60); Estimated Creatinine Clearance 31.42 ml/min; Glucose 88 mg/dL (74-106); Potassium 4.2 mmol/L (3.5-5.1); Protein, Total 5.6 g/dL (6.4-8.2); Sodium Level 134 mmol/L (136-145)
[2023-08-09 07:24] LABS: Differential Indicated SCAN CRITERIA MET
--- NOTE | 2023-08-09 07:39 | PN.HOSP_ITS ---
Reason for Visit Reason for Visit: Cough/shortness of breath fatigue/malaise Subjective Subjective Mrs. Anguiano is an 83-year-old female who presented to the emergency department at [facility] on 08/08/2023 with a 4 to 5-day history of fatigue, malaise, nonproductive cough, dyspnea, and low-grade temperature elevations. Her recently had similar symptoms and was diagnosed a day prior to presentation at the [place] with influenza A. She denies any significant wheezing but did complain of shortness of breath and felt that her chest felt sore from coughing. Vital signs on presentation were overall unremarkable other than a respiratory rate of 22 and oxygen saturation of 80% on room air at rest. This improved to 96% with 2 L supplemental oxygen. CBC showed leukopenia with lymphopenia and thrombocytopenia with a platelet count of 109,000. Baseline platelet count is unknown. BMP shows slightly elevated BUN and creatinine 18 and 1.3 respectively. Troponin was normal. Chest x-ray showed no acute findings. Rapid COVID/influenza antigen was positive for influenza A. Follow- up respiratory viral panel was performed as well and was positive for influenza A. She was admitted to medical floor and provided with supportive care. Tamiflu was not administered due to the timeframe out from initial onset of symptoms. She was started on aggressive pulmonary toilet. She was seen in follow-up on day one of her hospitalization on the medical floor. Patient states she is about 30% better. She was able to ambulate to the bathroom independently but feels she is still fairly weak. Wanted to go home today however I told her I did not think this was a good idea given the fact that she is only about 30% improved and still feeling weak and tired although better than at presentation and requiring oxygen still. Objective Data Objective Data Vital Signs: Vital Signs Temp Pulse Resp BP Pulse Ox O2 Del Method O2 Flow Rate 99.5 F H 75 16 129/60 H 94 Nasal Cannula 2 08/09/23 04:18 08/09/23 04:18 08/09/23 04:18 08/09/23 04:18 08/09/23 04:20 08/09/23 04:20 08/09/23 04:20 Oxygen Flow Rate (L/min) 2 Oxygen Delivery Method Nasal Cannula Weight: 54.2 kg Body Mass Index (BMI) 18.7 Intake & Output: Intake and Output for Last 24 Hours 12/26/23 12/27/23 12/28/23 23:59 23:59 23:59 Intake Total 1300 / 1300 1200 / 1200 Balance 1300 / 1300 1200 / 1200 Lab / Micro Data 08/09/23 06:00 08/09/23 06:00 Labs: Laboratory Results - last 24 hr 08/08/23 12:45: WBC 2.3 L, RBC 4.04 L, Hgb 11.8 L, Hct 36.6 L, MCV 90.6, MCH 29.2, MCHC 32.2, RDW Std Deviation 46.5 H, RDW Coeff of Segundo 14.0, Plt Count 109 L, MPV 12.5 H, Immature Gran % (Auto) 0.400, Neut % (Auto) 76.7 H, Lymph % (Auto) 8.8 L, [place] % (Auto) 13.7 H, Eos % (Auto) 0.0, Baso % (Auto) 0.4, Absolute Neuts (auto) 1.7 L, Absolute Lymphs (auto) 0.20 L, Nucleated RBC % 0, Diff Path Review December, Sodium 137, Potassium 4.0, Chloride 100, Carbon Dioxide 32.0, Anion Gap 5, BUN 18, Creatinine 1.38 H, Estim Creat Clear Calc 25.63, Est GFR (MDRD) Af Amer 47 L, Est GFR (MDRD) Non-Af 39 L, BUN/Creatinine Ratio 13.0, Glucose 111 H, Calcium 8.5, Troponin I High Sens 10 08/08/23 14:30: Procalcitonin 0.06 08/09/23 06:00: WBC 2.1 L, RBC 3.44 L, Hgb 9.9 L, Hct 31.4 L, MCV 91.3, MCH 28.8, MCHC 31.5 L, RDW Std Deviation 47.3 H, RDW Coeff of Segundo 14.1, Plt Count 76 L, MPV 12.4 H, Immature Gran % (Auto) 0.000, Neut % (Auto) 60.2, Lymph % (Auto) 24.9, [place] % (Auto) 13.4 H, Eos % (Auto) 0.5, Baso % (Auto) 1.0, Absolute Neuts (auto) 1.3 L, Absolute Lymphs (auto) 0.52 L, Nucleated RBC % 0, Sodium 134 L, Potassium 4.2, Chloride 104, Carbon Dioxide 25.0, Anion Gap 5, BUN 15, Creatinine 1.12 H, Estim Creat Clear Calc 31.42, Est GFR (MDRD) Af Amer 59 L, Est GFR (MDRD) Non-Af 49 L, BUN/Creatinine Ratio 13.4, Glucose 88, Calcium 7.8 L , Total Bilirubin 0.20, AST 23, ALT 17, Alkaline Phosphatase 41 L, Total Protein 5.6 L, Albumin 2.6 L, Globulin 3.0, Albumin/Globulin Ratio 0.9 Micro: Microbiology 08/08/23 Unknown Mucosa - Nose Respiratory Panel (PCR) - Final Influenza A (Subtype H3) 08/08/23 12:45 Nasal Secretion SARS-CoV-2 & FLU Antigen (Rapid) - Final Influenzae A Radiography Diagnostic Testing: Radiology Impression Chest X-Ray 08/08/23 12:26 IMPRESSION: No radiographic evidence of acute cardiopulmonary disease. Electronically Signed: Rina Rodríguez MD at 13:25 EST , Physical Exam Const alert and oriented x3 Constitutional Narrative: Very pleasant, older, white female, sitting up in bed, appears comfortable and nontoxic, appears younger than stated age, currently stable on 2 L nasal cannula HEENT head/scalp atraumatic and moist oral mucous membranes HEENT Narrative: Mallampati 2, no thrush Head and Scalp: normocephalic Resp Resp Narrative: Scattered mild coarse breath sounds with few scattered end expiratory wheeze Auscultation: wheezes; Negative for rales or rhonchi Cardio regular rate, regular rhythm, S1 normal heart sound, S2 normal heart sound, no murmurs, no rub, no gallops and no clicks GI normal to inspection, nondistended, normoactive bowel sounds, soft to palpation and non-tender Extremity no clubbing, cyanosis or edema Extremity Narrative: Pedal pulses are 2+, radial pulses are 2+ Neuro oriented x3, moves all extremities and no focal motor deficits Neuro Narrative: Generalized weakness noted with no focal deficits Speech: speech normal Psych affect normal Psych Narrative: Very pleasant, interacts appropriately, eye contact is good Assessment & Plan Assessment/Plan (1) Influenza A: (2) Hypoxia: (3) History of asthma: (4) Pancytopenia: PLAN: Plan Acute hypoxia secondary to influenza A infection -Patient out of the window for Tamiflu administration at the time of presentation she had been symptomatic for 4 to 5 days -Supportive care -Scheduled and as needed DuoNebs/albuterol -Antitussives -Add prednisone 40 mg daily with history of asthma to decrease pulmonary inflammation -Incentive spirometry -Pep therapy -Will need ambulatory pulse ox prior to discharge Generalized weakness/fatigue/malaise -Secondary to the above infection -PT/OT consultation -Case management/social work consultation for discharge needs Pancytopenia -Anemia is chronic and mild -Thrombocytopenia and leukopenia are new and likely laded to acute viral infection -Will continue to monitor closely -Follow-up CBC in a.m. Hypothyroidism -Continue home levothyroxine Hypertension -Continue home lisinopril Hyperlipidemia -Continue home lovastatin Vitamin D deficiency -Continue home vitamin D supplementation CKD stage IIIa -Baseline serum creatinine appears to run between 1 and 1.2 -Currently at baseline -Monitor closely -Avoid nephrotoxins as able DVT prophylaxis -Patient with thrombocytopenia however platelet count greater than 50,000 -Will continue heparin as ordered but monitor platelet counts closely and discontinue chemoprophylaxis if platelets drop below 50,000 CODE STATUS -Full code which was verified on admission to the hospital Charges/Coding Visit Charges Inpatient E&M: 65923 Subs Hosp L2
[2023-08-09 08:26] LABS: Differential Comment SCANNED; Platelet Estimate MOD DEC (ADEQ)
[2023-08-09] MEDS: MethylPREDNISolone 125 MG/2 ML Vial 60 MG IV (09:52)
[2023-08-09] MEDS: Heparin Injection (Vial) 5,000 UNIT/ML VIAL 5000 UNIT SC ×2 (09:53→20:13)
[2023-08-09] MEDS: Menthol/Lanolin/Calamine/Znox 113 GM Tube 1 APPLIC TOPICAL ×3 (09:53→20:13)
[2023-08-09] MEDS: 0.9% Saline Lock 10 ML Syringe IV (09:54)
[2023-08-09] MEDS: Budesonide Respules 0.5 MG/2 ML AMPUL.NEB. INHALATION ×2 (11:50→19:14)
[2023-08-09 12:59] LABS: Pathologist Review Reviewed
--- NOTE | 2023-08-09 15:00 | CASEMGMT ---
Addendum entered by Melody Tai 08/09/23 15:12: Pt does not have rx coverage. Original Note: RN JO ANN Assessment: Face to Face with pt for initial transition planning/care coordination assessment. RN JO ANN introduced self and role at [facility], pt voices understanding and consents to assessment. Pt is A&O x4 and answers all questions appropriately at this time. Pt sitting up in chair with oxygen on in no distress. Care providers, pharmacy, and demographics verified/updated. Admitting Dx: influenza A, hypoxia PCP:Sabrina Specialists: JOHN PAUL Slaughter pulm; [place], kp Preferred Pharmacy: [facility] Insurance: [facility] Prescription Benefit: yes LNOK: Ed Silvio, Living Arrangements: Pt lives with in a split level home with a ramp to enter. Pt reports that she is I in ADL's and denies concerns at home. Transportation: Pt transports pt to medical appts although pt can drive. DME:Shower chair HHC/SNF: Denies hx of Pt states no concerns with going home at time of dc. Provided pt with a verbal local in network list of DME companies, should pt be dc'd on oxygen, pt chose [employer]. Pt is able to afford pox. Pt states she feels better than when she came in. She does not think she would need any therapy upon dc. Therapy to eval yet. Pt states no further concerns/needs. CM to follow. Advised pt to ask CM if any further question/concerns/needs arise, voices understanding. Pt Goal: Home Plan: Home, follow for oxygen and therapy evals.
--- NOTE | 2023-08-09 16:08 | CHAPLAIN ---
Type of Pastoral Visit _x__ Initial Visit ___ Follow-up Visit ___ On-call Visit ___ General Patient Visit ___ Spiritual Assessment ___ Family Conference ___ Bereavement ___ Rapid Response ___ Code Blue ___ Other (describe below) Pastoral Care Referral From _x__ Patient ___ Family ___ Nurse ___ Physician ___ Pharmacy Consultant ___ Chemical Plant Operator Supervisor ___ Other (describe below) Sacrament/Intervention _x__ Active listening ___ Anointing ___ Yarsani ___ Bereavement ___ Communion ___ Letty exploration ___ _x__ Life review _x__ Prayer ___ Reconciliation ___ Sacrament of Sick _x_ Supportive presence ___ Wedding ___ Other (describe below) Pastoral Comments patient speaks of her illness and the bad timing which made [place] impossible to share with her family; pt is welcoming of spiritual care and expresses gratitude for the hospital's provision of same; pt talks about family, her little town, and her Mormon letty; pt asks for prayer for health and support
[2023-08-09] MEDS: Albuterol 2.5 MG/3 ML VIAL.NEB. INHALATION (19:14)
[2023-08-09] MEDS: Atorvastatin Calcium 10 MG Tablet 5 MG PO (20:17)
[2023-08-10] VITALS (8 sets, daily range): BP systolic 125–155; BP diastolic 57–73; PULSE 68–84; RESP 16–18; TEMP 36.4–36.6; O2SAT 86–100; BMI 18.8
[2023-08-10] MEDS: Levothyroxine 75 MCG Tablet PO (04:17)
[2023-08-10 06:34] LABS: Absolute Lymphocyte Count 0.65 X10^3/uL (0.83-4.51); Absolute Neutrophil Count 1.7 X10^3/uL (2.0-7.7); Hematocrit 32.7 % (37-47); Hemoglobin 10.4 g/dL (12.0-15.0); Lymphocyte # 0.65 X10^3/ul (0.83-4.51); Mean Corp Hgb Conc 31.8 g/dL (32-36); Mean Corpuscular Hgb 28.9 pg (27.0-32.0); Mean Corpuscular Volume 90.8 fL (81-99); Mean Platelet Vol. 12.9 fl (6.2-12.0); Monocyte# 0.26 X10^3/uL; NRBC Flagged by Analyzer 0 % (0-5); Neutrophil # 1.69 X10^3/uL (2.7-7.7); POSITIVE COUNT YES; Platelet Count 89 K/mm3 (150-450); RBC Distribution Width CV 13.7 % (11.6-14.6); RBC Distribution Width SD 45.7 fl (35.1-43.9); White Blood Count 2.6 K/mm3 (4.4-11.0)
[2023-08-10 06:56] LABS: Anion Gap 5 (5-15); BUN 20 mg/dL (7-18); BUN/Creat Ratio 17.5 RATIO (10-20); Calcium,Total 8.2 mg/dL (8.5-10.1); Chloride 105 mmol/L (98-107); Creatinine, Serum 1.14 mg/dL (0.55-1.02); EST Glomerular Filtration Rate 48 mL/min (>60); Est Glom Filt Rate - Afr Amer 58 mL/min (>60); Estimated Creatinine Clearance 31.04 ml/min; Glucose 95 mg/dL (74-106); Potassium 3.9 mmol/L (3.5-5.1); Sodium Level 137 mmol/L (136-145)
[2023-08-10] MEDS: Budesonide Respules 0.5 MG/2 ML AMPUL.NEB. INHALATION (07:08)
[2023-08-10] MEDS: Heparin Injection (Vial) 5,000 UNIT/ML VIAL 5000 UNIT SC (09:08)
[2023-08-10] MEDS: predniSONE 20 MG Tablet 40 MG PO (09:08)
[2023-08-10] MEDS: Menthol/Lanolin/Calamine/Znox 113 GM Tube 1 APPLIC TOPICAL (09:09)
--- NOTE | 2023-08-10 12:01 | PCM.DC.SUM ---
Providers Date of Admission: 08/08/23 Date of Discharge: 08/10/23 Primary Care Physician: Dr. Kymberly Bennett MD Reason For Visit: INFLUENZA A, HYPOXIA Diagnosis Discharge Diagnosis (1) Influenza A: Status: Acute Code(s): J10.1 - Influenza due to other identified influenza virus with other respiratory manifestations (2) Hypoxia: Status: Acute Code(s): R09.02 - Hypoxemia (3) History of asthma: Status: Acute Code(s): Z87.09 - Personal history of other diseases of the respiratory system (4) Pancytopenia: Status: Acute Code(s): D61.818 - Other pancytopenia Medications at Discharge Home Medications cholecalciferol (vitamin D3) 125 mcg (5,000 unit) capsule 5,000 unit PO QHS supplement 03/07/17 levothyroxine 75 mcg tablet 75 mcg PO DAILY thyroid 03/07/17 lovastatin 10 mg tablet 10 mg PO QHS cholestrol 03/07/17 beclomethasone dipropionate 80 mcg/actuation HFA breath activated aerosol 2 inh inhalation QHS breathing 05/14/20 lisinopril 10 mg tablet 10 mg PO QHS PRN blood pressure 08/08/23 albuterol sulfate 90 mcg/actuation aerosol inhaler 1 inh inhalation Q6H PRN shortness of breath or wheezing #6.7 grams 08/10/23 prednisone 10 mg tablet 10 mg PO DAILY #30 tabs 08/10/23 Hospital Course Operations None Procedures EKG and - (Chest x-ray) Summary of Care Provided Minutes Spent on Discharge: 36 Hospital Course: Mrs. Anguiano is an 83-year-old female who presented to the emergency department at [facility] on 08/08/2023 with a 4 to 5-day history of fatigue, malaise, nonproductive cough, dyspnea, and low-grade temperature elevations. Her recently had similar symptoms and was diagnosed a day prior to presentation at the [facility] with influenza A. She denied any significant wheezing but did complain of shortness of breath and felt that her chest felt sore from coughing. Vital signs on presentation were overall unremarkable other than a respiratory rate of 22 and oxygen saturation of 80% on room air at rest. This improved to 96% with 2 L supplemental oxygen. CBC showed leukopenia with lymphopenia and thrombocytopenia with a platelet count of 109,000. Baseline platelet count is unknown. BMP shows slightly elevated BUN and creatinine 18 and 1.3 respectively. Troponin was normal. Chest x-ray showed no acute findings. Rapid COVID/influenza antigen was positive for influenza A. Follow-up respiratory viral panel was performed as well and was positive for influenza A. She was admitted to medical floor and provided with supportive care. Tamiflu was not administered due to the timeframe out from initial onset of symptoms. She was started on aggressive pulmonary toilet, prednisone, and incentive spirometry. Within 24 hours admission she was reporting that she was already feeling 30% better and wanted to go home however she was still fairly weak. On day 2 of her hospitalization she indicated she felt about 70% better and was anxious to go home. At rest she was on 2 L of oxygen at the time of my evaluation however we did home O2 eval and at rest her oxygen saturations were 92% on room air however, with ambulation she dropped to 88% on room air and she was placed on supplemental oxygen at 2 L with improvement to her oxygen saturations into the mid 90s. She was accepting of going home on oxygen. She was found to be pancytopenic on admission and her counts were all stabilizing at the time of discharge however it had not yet normalized. I suspect this is related to her viral illness however I would recommend a CBC be repeated in the next 2 weeks to verify recovery. She was discharged home with a prednisone taper and indicated she already had pulmonary medicine follow-up on 08/16/2022 with Joyce Sanders from Dr. Slaughter's office over at [facility]. She was instructed to continue to wear her oxygen with exertion until she was told otherwise by pulmonary medicine. In addition to a prescription for prednisone, I also sent her home with a prescription for albuterol to utilize as needed for any shortness of breath or wheezing that she may experience. She will restart home inhalers after discharge. No other medication changes were made. She will follow-up with her primary care physician within the next month and with pulmonary medicine as previously scheduled on 08/16/2022. She was discharged home in stable condition with a prescription for oxygen during exertion and referral [place] 08/10/2023. Patient is ambulatory at home and in the community and requires oxygen with portability. Discharge diagnoses: Acute hypoxia Influenza A infection Generalized weakness Fatigue Malaise Pancytopenia Hypothyroidism Hypertension Hyperlipidemia Vitamin D deficiency CKD stage IIIa Physical Exam Const alert, oriented x3, no apparent distress, average body habitus, no limitations and well nourished Constitutional Narrative: Very pleasant, older, white female, sitting up in bed, appears comfortable and nontoxic, appears younger than stated age, currently stable on 2 L nasal cannula at rest with oxygen saturations in the mid upper 90s General Appearance: cooperative, comfortable, well kempt and well developed Orientation / Consciousness: awake, oriented to person, oriented to place and oriented to time Exam Limitations: no limitations HEENT normocephalic, head/scalp atraumatic, hearing grossly normal bilaterally and moist oral mucous membranes HEENT Narrative: Mallampati 2, no Eyes PERRL, EOMs intact bilaterally and conjunctivae normal Eyes Narrative: No scleral icterus Neck No no lymphadenopathy and supple Neck Narrative: Minimal anterior cervical chain lymphadenopathy right slightly greater than left, trachea midline, no thyroid enlargement Resp normal respiratory effort, no retractions and no use of accessory muscles Resp Narrative: Scattered mild coarse breath sounds but wheezing has resolved Auscultation: Negative for rales, rhonchi or wheezes Cardio regular rate, regular rhythm, S1 normal heart sound, S2 normal heart sound, no murmurs, no rub, no gallops and no clicks GI normal to inspection, nondistended, normoactive bowel sounds, soft to palpation and non-tender Extremity no clubbing, cyanosis or edema Extremity Narrative: Pedal pulses are 2+, radial pulses are 2+ Skin no rashes or lesions noted, no wounds, skin turgor normal and no jaundice Neuro oriented x3, moves all extremities and no focal motor deficits Neuro Narrative: Mild generalized weakness proximal greater than distal Speech: speech normal Psych affect normal Psych Narrative: Very pleasant, interacts appropriately, eye contact is good Weight / BMI Weight Weight: 54.5 kg Body Mass Index (BMI) 18.8 ABG / Lab / Microbiology Data 08/10/23 06:05 08/10/23 06:05 Laboratory: Laboratory Results - last 24 hr 08/08/23 12:45: Diff Path Review Reviewed 08/10/23 06:05: WBC 2.6 L, RBC 3.60 L, Hgb 10.4 L, Hct 32.7 L, MCV 90.8, MCH 28.9, MCHC 31.8 L, RDW Std Deviation 45.7 H, RDW Coeff of Segnudo 13.7, Plt Count 89 L, MPV 12.9 H, Immature Gran % (Auto) 0.000, Neut % (Auto) 65.0, Lymph % (Auto) 25.0, Marion % (Auto) 10.0, Eos % (Auto) 0.0, Baso % (Auto) 0.0, Absolute Neuts (auto) 1.7 L, Absolute Lymphs (auto) 0.65 L, Nucleated RBC % 0, Sodium 137, Potassium 3.9, Chloride 105, Carbon Dioxide 27.0, Anion Gap 5, BUN 20 H, Creatinine 1.14 H, Estim Creat Clear Calc 31.04, Est GFR (MDRD) Af Amer 58 L, Est GFR (MDRD) Non-Af 48 L, BUN/Creatinine Ratio 17.5, Glucose 95, Calcium 8.2 L Microbiology: Microbiology 08/08/23 Unknown Mucosa - Nose Respiratory Panel (PCR) - Final Influenza A (Subtype H3) 08/08/23 12:45 Nasal Secretion SARS-CoV-2 & FLU Antigen (Rapid) - Final Influenzae A D/C Instructions Discharge Diet: Low fat / Low cholesterol Discharge Activity: No Restrictions Meaningful Use Info Meaningful Use Diagnoses (Choose all that apply): None applicable Discharge Plan Admission Admit Date/Time: 08/08/23 13:47 Primary Reason for Your Visit: Cough/shortness of breath/fatigue/malaise Attending Provider: Jacquie Reilly Primary Care Provider: Kymberly Bennett Consulting Providers: Ayleen Daniels Instructions Additional Instructions / Restrictions: 1. Please complete steroid taper 2. While at rest you require no oxygen however with ambulation you require 2 L 3. Please follow-up with your retail beauty specialist as scheduled on 08/16/2023 and use your oxygen with exertion until they tell you it is okay to stop--> I sent my discharge summary to Dr. Slaughter's office. I was not able to directly send it to Joyce Pacheco 4. Please continue to use the incentive spirometer and Acapella device after discharge Discharge Orders/Prescriptions Prescriptions: New prednisone 10 mg tablet 10 mg PO DAILY Qty: 30 0RF Rx Instructions: 4 tablets x 3 days, 3 tablets x 3 days, 2 tablets x 3 days, 1 tablet x 3 days albuterol sulfate 90 mcg/actuation HFA aerosol inhaler 1 inh inhalation Q6H PRN (Reason: shortness of breath or wheezing) Qty: 6.7 0RF Continued lovastatin 10 MG tablet 10 mg PO QHS levothyroxine 75 MCG tablet 75 mcg PO DAILY cholecalciferol (vitamin D3) 5,000 UNIT capsule 5,000 unit PO QHS beclomethasone dipropionate 80 mcg/actuation HFA aerosol breath activated 2 inh inhalation QHS Patient Comments: INHALE 1 PUFF BY MOUTH TWICE DAILY START 07 21 2019 END 10 19 2019 lisinopril 10 mg tablet 10 mg PO QHS PRN Referrals / Follow Up: Kymberly Bennett MD [Primary Care Provider] - Within 2 Weeks Honey Slaughter MD [Non-Staff] - See Referral Note (Please follow-up at your scheduled appointment with Joyce Pacheco on 08/16/2022) Disposition Disposition (needs filled in before D/C Order can be placed): Home, Self Care Charges/Coding Visit Charges Inpatient E&M: 86309 Disch Hosp >30min
[2023-08-10 12:06] LABS: Pathologist Review Reviewed
--- NOTE | 2023-08-10 13:49 | CASEMGMT ---
RN CM DC Note This RN sets up O2 referral to [facility]. [facility] liaison called and does not answer the phone. Kevan doron called and states we can give her a tank here prior to DC. This RN CM enters room and provides tank and education on how to use. Pt given education on how to call [facility] regarding concentrator and further instruction. Pt and pt SO state understanding. Pt also states she does not need any therapy after DC. No other needs at this time and pt will be ready for DC. Stephanie Roberts RN CM
== END 2023-08-10 14:38 | disposition home or self-care (01) | DRG 194 ==
LOC: ED 13:40 → MS3 13:59
PROVIDERS: Physician Assistant; Admitting Provider Family Medicine; Emergency Provider Emergency Medicine; PCP Internal Medicine; Referring Provider Emergency Medicine; Visit Provider Internal Medicine
DX: J10.1 Influenza due to other identified influenza virus with other respiratory manifestations (principal); D61.818 Other pancytopenia; D69.6 Thrombocytopenia, unspecified; N18.31 Chronic kidney disease, stage 3a; J45.909 Unspecified asthma, uncomplicated; E03.9 Hypothyroidism, unspecified; I12.9 Hypertensive chronic kidney disease with stage 1 through stage 4 chronic kidney disease, or unspecified chronic kidney disease; E78.5 Hyperlipidemia, unspecified; E55.9 Vitamin D deficiency, unspecified; D72.810 Lymphocytopenia; R53.81 Other malaise; R09.02 Hypoxemia; R53.1 Weakness; Z87.09 Personal history of other diseases of the respiratory system
CPT/HCPCS: 36415; 71046; 80048; 80053; 84145; 84484; 85025; 87428; 87633; 93005; 94640; 94668; 97162; 97166; 99252; 99285; J7030; A4216; G0463